=== PATIENT | male | born 1945 | race Caucasian/White ===

== ENCOUNTER → 2018-08-30 | Outpatient (CLI) | payer OTHER ==
[~2018-08-30] MED LIST: ATOR10 PO; ERGO400; HYDACE5 PO; HYDR1TAB94 PO; IBUPROFEN200 MG PO; LOSHYD PO; Multiple Vitam1 EAC1 PO; NAPR220; NAPR500 PO; PROSTATE HEALT1 EACH PO; Pyridium100 MG PO; SENN187 PO; VITAMIN D32000 UNIT PO
== END | disposition home or self-care (01) ==
LOC: LAB SHORT 07:37 → PLD 07:37
DX: L81.4 Other melanin hyperpigmentation (principal); L57.8 Other skin changes due to chronic exposure to nonionizing radiation
CPT/HCPCS: 88305

== ENCOUNTER 2019-05-01 06:41 | Day surgery (SDC) | payer OTHER ==
[~2019-05-01] VITALS: Ht 175.3 cm; Wt 81.1 kg
--- NOTE | 2019-05-01 08:13 | NUR ---
Ambulatory in Day Surgery History, Chart, Medications and Allergies reviewed before start of procedure.Lungs clear T/O to Auscultation. Patient confirms NPO status and agrees with scheduled surgery. Patient reports completing Chlorhexadine shower X2 prior to admission to hospital.Surgical site prepped with 2% Chlorhexidine cloth wipe. Patient States Post-Procedure ride home has been arranged.
--- NOTE | 2019-05-01 11:05 | NUR ---
Patient up to Ambulate independently. Gait steady. Discharge instructions reviewed with patient. Patient verbalizes understanding. Copy given to patient to take home. Discharged via wheelchair to private car for ride home.
== END 2019-05-01 22:50 | disposition home or self-care (01) ==
LOC: ORSCMMR 06:41 → ORD 08:15 → ORSCMMR 08:15
PROVIDERS: Surgery
PROC: 0WUF0JZ Supplement Abdominal Wall with Synthetic Substitute, Open Approach (ICD-10-PCS; principal; 2019-05-01 08:15)
DX: K42.9 Umbilical hernia without obstruction or gangrene (principal); I10 Essential (primary) hypertension; E78.5 Hyperlipidemia, unspecified; Z79.899 Other long term (current) drug therapy
CPT/HCPCS: C1781; J0690; J1100; J1885; J2250; J2370; J2405; J2704; J2710; J3010; J7120

== ENCOUNTER 2019-09-08 09:29 | Day surgery (SDC) | payer OTHER ==
[~2019-09-08] VITALS: Ht 172.7 cm; Wt 82.2 kg
--- NOTE | 2019-09-08 12:07 | NUR ---
09/08/19 1207 LIZA SILVA VSS ON ROOM AIR IN PACU. PATIENT DENIES PAIN/NAUSEA.
== END 2019-09-08 12:40 | disposition home or self-care (01) ==
LOC: ORSCSDS 09:29
PROVIDERS: Surgery
PROC: 0YU50JZ Supplement Right Inguinal Region with Synthetic Substitute, Open Approach (ICD-10-PCS; principal; 2019-09-08 11:00)
DX: K40.90 Unilateral inguinal hernia, without obstruction or gangrene, not specified as recurrent (principal); I10 Essential (primary) hypertension; E78.5 Hyperlipidemia, unspecified; Z79.899 Other long term (current) drug therapy
CPT/HCPCS: C1781; J0690; J1100; J1885; J2370; J2405; J2704; J3010; J7120

== ENCOUNTER 2019-12-28 06:47 | Day surgery (SDC) | payer OTHER ==
[~2019-12-28] VITALS: Ht 175.3 cm; Wt 81.4 kg
[~2019-12-28 06:47] MED LIST changes: +ALEVE220 MG
== END 2019-12-28 08:43 | disposition home or self-care (01) ==
LOC: ORSCSDS 06:47
PROVIDERS: Surgery
PROC: 0DJD8ZZ Inspection of Lower Intestinal Tract, Via Natural or Artificial Opening Endoscopic (ICD-10-PCS; principal; 2019-12-28 08:00)
DX: Z12.11 Encounter for screening for malignant neoplasm of colon (principal); Z86.010 Personal history of colon polyps; I10 Essential (primary) hypertension; F17.210 Nicotine dependence, cigarettes, uncomplicated; Z79.899 Other long term (current) drug therapy
CPT/HCPCS: J0330; J0461; J2405; J2704; J7120

== ENCOUNTER 2020-05-21 06:19 | Day surgery (SDC) | payer OTHER ==
[~2020-05-21] VITALS: Ht 175.3 cm; Wt 187.2 kg
== END 2020-05-21 09:10 | disposition home or self-care (01) ==
LOC: ORSCSDS 06:19
PROVIDERS: Counselor Professional
PROC: 08RJ3JZ Replacement of Right Lens with Synthetic Substitute, Percutaneous Approach (ICD-10-PCS; principal; 2020-05-21 07:30)
DX: H25.11 Age-related nuclear cataract, right eye (principal); I10 Essential (primary) hypertension; E78.00 Pure hypercholesterolemia, unspecified
CPT/HCPCS: J2001; J2250; J3010; V2632

== ENCOUNTER → 2020-06-11 | Outpatient (CLI) | payer OTHER | END | disposition home or self-care (01) | LOC: PLD 12:30 → LAB SHORT 12:30 | DX: D48.5 Neoplasm of uncertain behavior of skin (principal) | CPT/HCPCS: 88305 ==

== ENCOUNTER → 2020-10-01 | Outpatient (CLI) | payer OTHER, SELFPAY | END | disposition home or self-care (01) | LOC: PLD 10:58 → LAB SHORT 10:58 | DX: L90.5 Scar conditions and fibrosis of skin (principal) | CPT/HCPCS: 88305 ==